=== PATIENT | male | born 2000 | race Hispanic/Latino ===

== ENCOUNTER 2024-10-02 17:14 | Emergency (ER) | payer SELFPAY ==
[2024-10-02 17:15] VITALS: BP 130/74; PULSE 78; RESP 16; TEMP 36.9; O2SAT 96; BMI 23.5
--- NOTE | 2024-10-02 18:22 | EKG12_ITS ---
Test Reason : SOB Blood Pressure : */* mmHG Vent. Rate : 106 BPM Atrial Rate : 106 BPM P-R Int : 142 ms QRS Dur : 102 ms QT Int : 340 ms P-R-T Axes : 68 92 52 degrees QTcB Int : 451 ms Sinus tachycardia Rightward axis Brugada pattern, type 1 Abnormal ECG Confirmed by AB SILVER, RL ([id number]), purchasing expeditor ALVARO SANTOS ([id number]) on 10/04/2024 6:26:53 AM Referred By: Confirmed By: RL BERGER MD
--- NOTE | 2024-10-02 18:22 | ED.VIS.DYS ---
HPI History of Present Illness Chief Complaint: Shortness of Breath Informant: patient and spouse/S.O. Narrative Narrative: 23-year-old male here with his fianc?e originally from [place] (in the [place]), states he started feeling poorly day before last, yesterday started having fevers, chills, cough that persist today and now he is having pain in his left posterior lung. Coughing up green sputum. Malaised. Some nausea but no vomiting or significant abdominal pain. States he had COVID years ago that gave him pneumonia and scarring in his left lower lung. Does a history of asthma but has not really been wheezing. The significant other states that he looks jaundiced and that is not normal for him. [facility] Medical History (Updated 10/02/24 @ 21:[address] Wagner Walter MD) NAFL (nonalcoholic fatty liver) Asthma Home Medications ?Medication ?Instructions ?Recorded ?Last Taken ?Type amoxicillin 875 mg-potassium 1 tab PO BID #20 tabs 10/02/24 Unknown Rx clavulanate 125 mg tablet azithromycin 250 mg tablet 250 mg PO DAILY #4 TABLETS 10/02/24 Unknown Rx Allergy/AdvReac Type Severity Reaction Status Date / Time No Known Allergies Allergy Verified 10/02/24 17:14 Surgical History History of cholecystectomy Social History Smoking Status: Never smoker [facility] ED Constitutional Constitutional ED: Reports body ache(s), chills, fever(s) and malaise Eyes Eyes: Denies change in vision or diplopia ENT ENT ED: Denies ear pain, rhinorrhea or sore throat Cardiovascular Cardiovascular: Reports chest pain; Denies palpitations Respiratory/Chest Respiratory/Chest: Reports cough, dyspnea and sputum Gastrointestinal Gastrointestinal: Reports nausea; Denies abdominal pain, diarrhea or vomiting Genitourinary Genitourinary ED: Denies dysuria or hematuria Musculoskeletal Musculoskeletal: Denies back pain or neck pain Integumentary Denies abscess or rash Neurologic Neurologic: Denies headache(s), paresthesias or weakness EXAM Physical Exam Const Vital Signs: 10/02/24 17:15 10/02/24 17:33 10/02/24 18:43 Temperature 98.4 F Temperature Source Oral Pulse Rate 78 105 H Respiratory Rate 16 40 H Respiratory Effort Normal Non-Labored Respiratory Depth Normal Respiratory Pattern Normal Tachypnea Blood Pressure 130/74 H Blood Pressure Mean 92 Pulse Ox 96 Oxygen Delivery Method Room Air Room Air 10/02/24 21:14 Temperature Temperature Source Pulse Rate 78 Respiratory Rate Respiratory Effort Respiratory Depth Respiratory Pattern Blood Pressure 122/74 H Blood Pressure Mean 90 Pulse Ox Oxygen Delivery Method Positive well nourished and well developed General Appearance ED: well developed and NAD HEENT Reports moist mucous membranes normocephalic and atraumatic Eyes PERRL and EOMs intact bilaterally Eyes Narrative: Mild scleral icterus Neck full ROM and supple Resp Resp Narrative: Mild tachypnea without respiratory distress. Crackles in the left base. Cardio regular rate, regular rhythm and no murmurs Rate: Negative for tachycardic GI non-tender and non-distended Auscultation: normoactive bowel sounds Palpation: soft Back/Spine no CVA tenderness General Back: other FROM Extremity normal to inspection General Extremety ED: Negative for edema, pulses abnormal or tenderness General Extremity: Negative for edema or pulses abnormal Neuro oriented x3, CN's II-XII intact bilaterally and no sensory deficits noted Sensorium / Orientation: awake and alert Motor Exam: strength 5/5 throughout Psych mental status grossly normal Skin no rashes or lesions noted and no wounds MDM MDM MDM Narrative Medical decision making narrative: 2 view chest x-ray my interpretation shows a left lower lobe infiltrate. Radiology in agreement. His labs are noted with a leukocytosis, but he also has an elevated bilirubin at 3.8. There are no prior for evaluation/comparison. The rest of his liver enzymes are normal. It is unknown if this is chronic or not but since the patient appears acutely jaundiced to the significant other, this is presumably acute. When I went to do a bedside ultrasound to look for gallstones, and had a discussion with the patient and his significant other, he states he had a prior cholecystectomy, he was on Accutane for a long time and it was discontinued when he was diagnosed with a fatty liver stage I. I confirmed that he has no abdominal pain right now and his nausea is better after Zofran. I reexamined him his abdomen is soft nontender nondistended. I sent him for a CT of the abdomen/pelvis to rule out other acute issues. I reviewed the images and the report which I agree with, it is essentially negative for thing acute. It is unknown if he has Gilbert's disease, fatty liver, combination, as we have no prior bilirubin readings. At this point without anything else acute I think it is reasonable to treat him for the pneumonia, cover atypicals and atypicals, and have him follow-up with primary care and GI. He does not have a primary care doctor, so referred to the next doctor on the unassigned list. Lab Data Attestation: I reviewed the patient's lab results. Labs: Laboratory Results - last 24 hr 10/02/24 18:34 WBC 15.5 H RBC 5.07 Hgb 15.2 Hct 43.9 MCV 86.6 MCH 30.0 MCHC 34.6 RDW Std Deviation 38.9 RDW Coeff of Katie 12.3 Plt Count 171 MPV 10.4 Immature Gran % (Auto) 0.600 Neut % (Auto) 85.8 H Lymph % (Auto) 7.2 L Isabella % (Auto) 6.1 Eos % (Auto) 0.1 Baso % (Auto) 0.2 Absolute Neuts (auto) 13.3 H Absolute Lymphs (auto) 1.11 Nucleated RBC % 0 Sodium 141 Potassium 3.3 L Chloride 109 H Carbon Dioxide 27.0 Anion Gap 5 BUN 8 Creatinine 0.87 Estim Creat Clear Calc 146.69 Est GFR (MDRD) Af Amer 137 Est GFR (MDRD) Non-Af 113 BUN/Creatinine Ratio 9.2 L Glucose 121 H Calcium 8.4 L Total Bilirubin 3.80 H AST 15 ALT 44 Alkaline Phosphatase 57 Total Protein 6.9 Albumin 3.9 Globulin 3.0 Albumin/Globulin Ratio 1.3 Radiography Diagnostic Testing: Clinical Impression(s) from Imaging Studies Chest X-Ray 10/02/24 19:00 IMPRESSION: Left lower lobe pneumonia. Electronically Signed: Darrell Rea MD at 19:30 EST , Abdomen/Pelvis CT 10/02/24 20:23 IMPRESSION: Left lower lobe pneumonia tiny left pleural effusion. . No acute abnormalities within the abdomen or pelvis status post cholecystectomy. Electronically Signed: Darrell Rea MD at 21:39 EST Reading Location ID and State: [address] [place] [address] Tel , Service support , Rhythm Strip Rhythm Strip: Sinus Tach Rate: 105 Ectopy: None EKG Initial EKG: Attestation: I personally reviewed and interpreted this EKG as follows: Interpretation: No Acute Injury Pattern and Sinus Tachycardia Comments: Right axis Prior EKG tracings: not available for review Prior: No Prior Management Discussion w/another healthcare provider: Invoicing Specialist (GI doctor friend, agrees with close outpatient follow-up and adding direct bilirubin level) Discharge Plan Triage Chief Complaint: Shortness of Breath ED Provider: Wagner Walter Dx/Rx/DC Orders Clinical Impression: Left lower lobe pneumonia, Hyperbilirubinemia Instructions: ED Pneumonia (Adult) Prescriptions: New amoxicillin-pot clavulanate 875-125 mg tablet 1 tab PO BID Qty: 20 0RF azithromycin 250 mg tablet 250 mg PO DAILY Qty: 4 0RF Primary Care Provider: Care Physician,No Primary Referrals: Sue Zheng MD [Med Staff - Locomotive [employer]] - As soon as possible Daniele Hernandez DO [Med Staff - Active Staff] - As soon as possible Print Language: Azeri Disposition Disposition: Home, Self Care
[2024-10-02] MEDS: Albuterol 2.5 MG/3 ML VIAL.NEB. INHALATION (18:37)
[2024-10-02] MEDS: Ondansetron 4 MG/2 ML Vial IV (18:38)
[2024-10-02] MEDS: Ketorolac 30 MG/ML Syringe IV (18:38)
[2024-10-02 18:43] VITALS: PULSE 105; RESP 40
[2024-10-02 18:48] LABS: Absolute Lymphocyte Count 1.11 X10^3/uL (0.83-4.51); Absolute Neutrophil Count 13.3 X10^3/uL (2.0-7.7); Basophil# 0.03 X10^3/uL; Basophil% 0.2 % (0-1); Eosinophil# 0.02 X10^3/uL; Eosinophils% 0.1 % (0-5); Hematocrit 43.9 % (40-54); Hemoglobin 15.2 g/dL (13.0-16.5); Lymphocyte # 1.11 X10^3/ul (0.83-4.51); Lymphocyte % 7.2 % (19-41); Mean Corp Hgb Conc 34.6 g/dL (32-36); Mean Corpuscular Volume 86.6 fL (80-94); Mean Platelet Vol. 10.4 fl (6.2-12.0); Monocyte# 0.94 X10^3/uL; Monocyte% 6.1 % (0-10); NRBC Flagged by Analyzer 0 % (0-5); Neutrophil # 13.28 X10^3/uL (2.7-7.7); Neutrophil % 85.8 % (47-70); Platelet Count 171 K/mm3 (150-450); RBC Distribution Width CV 12.3 % (11.6-14.6); RBC Distribution Width SD 38.9 fl (35.1-43.9); Red Blood Count 5.07 M/mm3 (4.6-6.2); White Blood Count 15.5 K/mm3 (4.4-11.0)
--- NOTE | 2024-10-02 19:00 | RAD_ITS ---
STUDY: X-RAY CHEST REASON FOR EXAM: Male, 23 years old. cough, sob, fever, L side pain w/ respirations TECHNIQUE: PA and lateral COMPARISON: None. FINDINGS: Left lower lobe pneumonic infiltrate. There is no demonstrated pleural abnormality. Normal size heart. Normal mediastinum and kenton. Normal visualized pulmonary arteries. Normal visualized aortic arch and descending thoracic aorta. Normal visualized thoracic spine. Normal visualized ribs, clavicles, and shoulders. Postsurgical changes in the right upper quadrant RAD/Chest PA and Lateral IMPRESSION: Left lower lobe pneumonia. Electronically Signed: Darrell Rea MD at 19:30 EST ,
[2024-10-02 19:04] LABS: ALB/GLOB Ratio 1.3 RATIO (0.9-2.4); AST(SGOT) 15 U/L (15-37); Alanine Aminotransfer ALT/SGPT 44 U/L (16-61); Albumin, Serum 3.9 g/dL (3.2-5.0); Alkaline Phosphatase 57 U/L (45-117); Anion Gap 5 (5-15); BUN 8 mg/dL (7-18); BUN/Creat Ratio 9.2 RATIO (10-20); Calcium,Total 8.4 mg/dL (8.5-10.1); Chloride 109 mmol/L (98-107); Creatinine, Serum 0.87 mg/dL (0.70-1.30); EST Glomerular Filtration Rate 113 mL/min (>60); Est Glom Filt Rate - Afr Amer 137 mL/min (>60); Estimated Creatinine Clearance 146.69 ml/min; Glucose 121 mg/dL (74-106); Potassium 3.3 mmol/L (3.5-5.1); Protein, Total 6.9 g/dL (6.4-8.2); Sodium Level 141 mmol/L (136-145)
--- NOTE | 2024-10-02 20:23 | CT_ITS ---
STUDY: CT ABDOMEN AND PELVIS WITH CONTRAST REASON FOR EXAM: Male, 23 years old. jaundice, nausea; s/p trudy RADIATION DOSAGE (If Supplied By Facility): CTDIvol = ( 8.40 ) mGy, DLP = ( 587.68 ) mGycm TECHNIQUE: Transaxial images were obtained from the dome of the diaphragm to the symphysis pubis without oral contrast. IV 100mL Isovue-[id number] was administered. Sagittal and coronal images were reconstructed. Individualized dose optimization techniques were used for this CT. COMPARISON: None. FINDINGS: Left lower lobe infiltrate is noted tiny left pleural effusion.. The visualized portions of the heart are within normal limits. Normal liver. Gallbladder has been removed surgically. Normal spleen. Normal pancreas. Normal bilateral adrenal glands. Normal right kidney. Normal left kidney. Normal visualized stomach. Normal small intestine. Minor diverticular changes of the sigmoid colon without evidence for acute diverticulitis. No evidence for acute appendicitis Normal abdominal aorta. Normal inferior vena cava. Normal retroperitoneum. Poorly distended thick walled bladder likely of no significance Normal abdominal wall. Normal osseous structures. CT/Abdomen/Pelvis W IV Cont ONLY IMPRESSION: Left lower lobe pneumonia tiny left pleural effusion. . No acute abnormalities within the abdomen or pelvis status post cholecystectomy. Electronically Signed: Darrell Rea MD at 21:39 EST ,
[2024-10-02] MEDS: Azithromycin 250 MG Tablet 500 MG PO (20:45)
[2024-10-02] MEDS: Piperacil/Tazobactam 3.375 GM in 0.9% Normal Saline (50mL MB+) 50 ML IV (20:45)
[2024-10-02 21:14] VITALS: BP 122/74; PULSE 78
[2024-10-02] MEDS: traMADol 50 MG Tablet PO (22:08)
[2024-10-02 22:31] LABS: Bilirubin, Direct 0.37 mg/dL (0.00-0.30)
== END 2024-10-02 22:20 | disposition home or self-care (01) ==
PROVIDERS: Emergency Provider Emergency Medicine; Visit Provider Emergency Medicine
DX: J18.9 Pneumonia, unspecified organism (principal); E80.6 Other disorders of bilirubin metabolism; Z90.49 Acquired absence of other specified parts of digestive tract
CPT/HCPCS: 71046; 74177; 80053; 82248; 85025; 87631; 93005; 94640; 96365; 96375; 99283; Q9967; A4216; J2405

== ENCOUNTER → 2025-04-05 | Outpatient (CLI) | payer OTHER, SELFPAY ==
[2025-04-05 11:37] LABS: Hematocrit 47.4 % (40-54); Hemoglobin 16.6 g/dL (13.0-16.5); Immature Granulocytes Count 0.020 X10^3/uL (0.0-0.0); Mean Corp Hgb Conc 35.0 g/dL (32-36); Mean Corpuscular Volume 85.6 fL (80-94); Mean Platelet Vol. 10.4 fl (6.2-12.0); NRBC Flagged by Analyzer 0 % (0-5); Platelet Count 190 K/mm3 (150-450); RBC Distribution Width CV 12.9 % (11.6-14.6); RBC Distribution Width SD 40.0 fl (35.1-43.9); Red Blood Count 5.54 M/mm3 (4.6-6.2); White Blood Count 4.3 K/mm3 (4.4-11.0)
[2025-04-05 12:06] LABS: AST(SGOT) 24 U/L (<=37); Alanine Aminotransfer ALT/SGPT 32 U/L (<=46); Albumin, Serum 4.8 g/dL (3.5-5.0); Alkaline Phosphatase 76 U/L (40-129); Anion Gap 11 (5-15); BUN 8 mg/dL (4-19); BUN/Creat Ratio 9.4 RATIO (10-20); Calcium,Total 9.3 mg/dL (7.6-11.0); Carbon Dioxide 24.6 mmol/L (21.0-32.0); Chloride 106 mmol/L (98-108); Globulin 1.3 g/dL (2.2-4.2); Glucose 104 mg/dL (70-99); Potassium 4.0 mmol/L (3.3-5.1)
[2025-04-08 11:08] LABS: H. PYLORI STOOL AG Negative (Negative)
[2025-04-09 08:08] LABS: Calprotectin, Stool 11 ug/g (0-120)
== END | disposition home or self-care (01) ==
LOC: LAB 11:13
PROVIDERS: Referring Provider Student in an Organized Health Care Education/Training Program; Visit Provider Student in an Organized Health Care Education/Training Program
DX: K58.9 Irritable bowel syndrome, unspecified (principal); R19.7 Diarrhea, unspecified; Z90.49 Acquired absence of other specified parts of digestive tract
CPT/HCPCS: 36415; 80053; 83993; 85025; 87177; 87209; 87329; 87338; 87493; 87506

== ENCOUNTER → 2025-04-18 | Outpatient (CLI) | payer OTHER, SELFPAY ==
[2025-04-18 12:41] LABS: Cholesterol 101 mg/dL (<=200); Low Density Lipoprotein Calc. 45 mg/dL; Triglycerides 33 mg/dL; Very Low Density Lipoprotein 7 mg/dL (5-40); cholesterol:hdl ratio screen 2.04
== END | disposition home or self-care (01) ==
PROVIDERS: Referring Provider Nurse Practitioner Family; Visit Provider Nurse Practitioner Family
DX: Z00.01 Encounter for general adult medical examination with abnormal findings (principal)
CPT/HCPCS: 36415; 80061